=== PATIENT | male | born 1995 | race Caucasian/White ===

== ENCOUNTER → 2024-05-27 | Outpatient (CLI) | payer BC, SELFPAY ==
--- NOTE | 2024-05-27 18:50 | CT_ITS ---
PROCEDURE: ORB SELLA POST FOSSA EAR W/O 05/27/2024 REASON FOR EXAM: CONCERN FOR A GROWTH Bilateral hearing loss. TECHNIQUE: CT of the orbits without contrast. One or more dose reduction techniques were used (e.g., Automated exposure control, adjustment of the mA and/or kV according to patient size, use of iterative reconstruction technique). RADIATION DOSE SUMMARY: CTDlvol: 67.58 mGy DLP: 1393.46 mGycm COMPARISON: None FINDINGS: Globes: Unremarkable Extraocular Muscles: Unremarkable Orbits: Unremarkable Lacrimal Glands: Unremarkable Bones: Unremarkable Other: Visualized paranasal sinuses and intracranial structures: The middle ear cavities are widely patent. The internal auditory canal is unremarkable. The mastoid air cells are clear. Incidental note is made of small benign-appearing cervical lymph nodes. CT/Orb Sella Post Fossa Ear w/o IMPRESSION: Unremarkable examination. Reading Location: [place] [id number]
== END | disposition home or self-care (01) ==
LOC: CT 18:56
PROVIDERS: PCP Nurse Practitioner Family
DX: H61.303 Acquired stenosis of external ear canal, unspecified, bilateral (principal); H90.0 Conductive hearing loss, bilateral
CPT/HCPCS: 70480